=== PATIENT | female | born 1990 | race Caucasian/White ===

== ENCOUNTER 2017-10-22 20:34 | Emergency (ER) | payer SELFPAY, OTHER | END 2017-10-22 22:41 | disposition left against medical advice (07) | LOC: E/R 20:34 | DX: Z53.21 Procedure and treatment not carried out due to patient leaving prior to being seen by health care provider (principal) ==

== ENCOUNTER 2017-11-01 09:03 | Outpatient (CLI) | payer OTHER ==
[2017-11-01 11:22] LABS: ADD UMIC YES; UR ASCORBIC ACID 20 mg/dL (NEGATIVE); UR BILIRUBIN (Dip) NEGATIVE (NEGATIVE); UR BLOOD (Dip) NEGATIVE (NEGATIVE); UR CLARITY SLIGHTLY CLOUDY (CLEAR); UR COLOR YELLOW (YELLOW); UR GLUCOSE (Dip) NEGATIVE (NEGATIVE); UR KETONES (Dip) NEGATIVE (NEGATIVE); UR LEUKOCYTE ESTERASE (Dip) TRACE Leu/ul (NEGATIVE); UR MUCUS FEW /HPF (NONE SEEN); UR NITRITE (Dip) NEGATIVE (NEGATIVE); UR RBC 0 /HPF (0-5); UR SPECIFIC GRAVITY (Dip) 1.019 (1.003-1.030); UR SQUAMOUS EPITHELIAL CELL FEW /HPF (FEW); UR TOTAL PROTEIN (Dip) NEGATIVE (NEGATIVE); UR UROBILINOGEN (Dip) NEGATIVE (NEGATIVE); UR WBC 1 /HPF (0-5)
== END 2017-11-01 11:35 | disposition home or self-care (01) ==
LOC: OBT 09:03 → L-D 09:03 → OBT 11:35
DX: O26.892 Other specified pregnancy related conditions, second trimester (principal); R10.2 Pelvic and perineal pain; Z3A.22 22 weeks gestation of pregnancy
CPT/HCPCS: 81001

== ENCOUNTER 2017-11-04 13:25 | Outpatient (CLI) | payer OTHER | END 2017-11-04 17:55 | disposition home or self-care (01) | LOC: OBT 13:25 → L-D 13:25 → OBT 17:55 | DX: O26.852 Spotting complicating pregnancy, second trimester (principal); Z3A.22 22 weeks gestation of pregnancy | CPT/HCPCS: 76815; 76817 ==

== ENCOUNTER 2017-11-13 21:26 | Outpatient (CLI) | payer OTHER ==
[2017-11-13] MEDS: ONDANSETRON 4 MG TAB PO (22:29)
[2017-11-13 22:34] LABS: ADD MAN DIFF? NO
[2017-11-13 22:35] LABS: BASOPHILS % 0.2 % (0.0-2.0); EOSINOPHILS # 0.1 10^3/ul (0.0-0.5); EOSINOPHILS % 0.6 % (0.0-7.0); HEMATOCRIT 34.1 % (37.0-47.0); HEMOGLOBIN 11.6 g/dl (12.0-16.0); LYMPHOCYTES # 1.5 10^3/ul (0.8-2.9); LYMPHOCYTES % 9.7 % (15.0-51.0); MEAN CORPUSCULAR HEMOGLOBIN 29.4 pg (29.0-33.0); MEAN CORPUSCULAR VOLUME 86.5 fl (82.0-101.0); MEAN PLATELET VOLUME 8.5 fl (7.4-10.4); MONOCYTE # 0.7 10^3/ul (0.3-0.9); MONOCYTES % 4.8 % (0.0-11.0); NEUTROPHIL # 12.5 10^3/ul (1.6-7.5); NEUTROPHILS % 83.6 % (39.0-77.0); PLATELET COUNT 355 10^3/UL (140-415); RED BLOOD COUNT 3.94 10^6/ul (4.20-5.40); RED CELL DISTRIBUTION WIDTH 13.7 % (11.5-14.5)
[2017-11-13 22:46] LABS: ADD UMIC YES; UR AMORPHOUS CRYSTAL FEW /HPF (NONE SEEN); UR ASCORBIC ACID NEGATIVE (NEGATIVE); UR BILIRUBIN (Dip) NEGATIVE (NEGATIVE); UR BLOOD (Dip) NEGATIVE (NEGATIVE); UR CLARITY CLOUDY (CLEAR); UR COLOR YELLOW (YELLOW); UR GLUCOSE (Dip) NEGATIVE (NEGATIVE); UR KETONES (Dip) NEGATIVE (NEGATIVE); UR LEUKOCYTE ESTERASE (Dip) NEGATIVE Leu/ul (NEGATIVE); UR MUCUS FEW /HPF (NONE SEEN); UR NITRITE (Dip) NEGATIVE (NEGATIVE); UR RBC 0 /HPF (0-5); UR SPECIFIC GRAVITY (Dip) 1.019 (1.003-1.030); UR SQUAMOUS EPITHELIAL CELL FEW /HPF (FEW); UR TOTAL PROTEIN (Dip) NEGATIVE (NEGATIVE); UR UROBILINOGEN (Dip) NEGATIVE (NEGATIVE); UR WBC 0 /HPF (0-5)
[2017-11-13] MEDS ORDERED: LACTATED RINGER'S 500 ML IV (23:23)
[2017-11-13] MEDS: LACTATED RINGER'S 1,000 ML IV (23:36)
[2017-11-14 00:30] LABS: ALANINE AMINOTRANSFERASE 20 IU/L (13-69); ALBUMIN 3.5 g/dl (3.3-4.9); ALKALINE PHOSPHATASE 100 IU/L (42-121); ASPARTATE AMINO TRANSFERASE 19 IU/L (15-46); BILIRUBIN,INDIRECT 0.4 mg/dl (0-1.1); BILIRUBIN,TOTAL 0.4 mg/dl (0.2-1.3); TOTAL PROTEIN 6.8 g/dl (6.1-8.1)
[2017-11-14] MEDS: ACETAMINOPHEN 1000MG/100ML IV 100 ML IVPB (02:57)
[2017-11-14] MEDS: LACTATED RINGER'S 1,000 ML IV (03:01)
== END 2017-11-14 04:46 | disposition home or self-care (01) ==
LOC: OBT 21:26 → L-D 21:27
DX: O26.892 Other specified pregnancy related conditions, second trimester (principal); R10.9 Unspecified abdominal pain; R19.7 Diarrhea, unspecified; O21.0 Mild hyperemesis gravidarum; Z3A.23 23 weeks gestation of pregnancy
CPT/HCPCS: 36415; 76815; 76817; 80076; 81001; 85025; 87086; 96360; 96361; 96375

== ENCOUNTER 2019-04-06 12:13 | Inpatient (IN) | payer MEDICAID ==
[2019-04-06] MEDS: LACTATED RINGER'S 1,000 ML IV ×2 (12:50→20:37)
[2019-04-07] MEDS: LACTATED RINGER'S 1,000 ML IV (05:48)
== END 2019-04-07 12:00 | disposition home or self-care (01) | DRG 833 ==
LOC: OBT 12:13 → L-D 04-07 03:19 → OBT 18:10 → L-D 18:10
DX: O41.03X0 Oligohydramnios, third trimester, not applicable or unspecified (principal); Z3A.34 34 weeks gestation of pregnancy
CPT/HCPCS: 36415; 76815; 76816; 96360; 96361

== ENCOUNTER 2019-04-14 12:17 | Outpatient (CLI) | payer OTHER, MEDICAID ==
[2019-04-14 13:24] LABS: RUPTURE FETAL MEMBRANES NEGATIVE (NEGATIVE)
== END 2019-04-14 13:40 | disposition home or self-care (01) ==
LOC: OBT 12:17 → L-D 12:19 → OBT 13:40
DX: O41.03X0 Oligohydramnios, third trimester, not applicable or unspecified (principal); Z3A.35 35 weeks gestation of pregnancy
CPT/HCPCS: 76818; 84112

== ENCOUNTER 2019-04-25 01:38 | Inpatient (IN) | payer OTHER, MEDICAID ==
[2019-04-25] MEDS ORDERED: LACTATED RINGER'S 1,000 ML IV (02:20)
[2019-04-25] MEDS ORDERED: BUTORPHANOL 2 MG INJ IV ×2 (02:30)
[2019-04-25] MEDS ORDERED: MISOPROSTOL 200 MCG TAB PR ×2 (02:30→09:30)
[2019-04-25] MEDS ORDERED: LIDOCAINE 1% (MPF) 30 ML INJ INJ (02:30)
[2019-04-25] MEDS ORDERED: CARBOPROST 250 MCG INJ IM ×2 (02:30→09:30)
[2019-04-25] MEDS ORDERED: OXYTOCIN 30 UNITS/LR 500 ML IV ×2 (02:30→09:30)
[2019-04-25] MEDS ORDERED: METHYLERGONOVINE 0.2 MG INJ IM ×2 (02:30→09:30)
[2019-04-25 02:51] LABS: ADD MAN DIFF? NO
[2019-04-25 02:53] LABS: BASOPHILS % 0.2 % (0.0-2.0); EOSINOPHILS # 0.1 10^3/ul (0.0-0.5); EOSINOPHILS % 0.5 % (0.0-7.0); HEMATOCRIT 35.5 % (37.0-47.0); HEMOGLOBIN 11.5 g/dl (12.0-16.0); LYMPHOCYTES # 2.8 10^3/ul (0.8-2.9); LYMPHOCYTES % 23.1 % (15.0-51.0); MEAN CORPUSCULAR HGB CONC 32.4 g/dl (32.0-37.0); MEAN CORPUSCULAR VOLUME 83.3 fl (82.0-101.0); MEAN PLATELET VOLUME 10.4 fl (7.4-10.4); MONOCYTE # 0.9 10^3/ul (0.3-0.9); NEUTROPHIL # 8.4 10^3/ul (1.6-7.5); NEUTROPHILS % 68.6 % (39.0-77.0); PLATELET COUNT 270 10^3/UL (140-415); RED BLOOD COUNT 4.26 10^6/ul (4.20-5.40); RED CELL DISTRIBUTION WIDTH 13.1 % (11.5-14.5)
[2019-04-25 02:53] LABS: WHITE BLOOD COUNT 12.2 10^3/ul (4.8-10.8)
[2019-04-25] MEDS ORDERED: MINERAL OIL LIGHT 10 ML VIAL TOP (03:00)
[2019-04-25] MEDS: LACTATED RINGER'S 1,000 ML IV ×2 (03:00→03:32)
[2019-04-25] MEDS: AMPICILLIN 2 GM/NS (PMX) 100 ML IV (03:00)
[2019-04-25 03:12] LABS: INR 0.89; PROTIME 12.1 Sec (11.9-14.9); PT RATIO 0.9
[2019-04-25 03:13] LABS: PARTIAL THROMBOPLASTIN TIME 28.8 Sec (23.0-35.0)
[2019-04-25] MEDS ORDERED: FENTAnyl 2MCG/ML-ROPIV 0.2% 100 ML (03:27)
[2019-04-25] MEDS ORDERED: DIPHENHYDRAMINE 50 MG INJ IV (03:30)
[2019-04-25] MEDS ORDERED: NALOXONE (0.4 MG/ML) INJ IV (03:30)
[2019-04-25] MEDS ORDERED: ONDANSETRON 4 MG INJ IV ×2 (03:30→09:30)
[2019-04-25 03:51] LABS: HEPATITIS B SURFACE ANTIGEN NEGATIVE (NEGATIVE)
[2019-04-25 04:01] LABS: HIV 1&2 ANTIBODY NEGATIVE (NEGATIVE)
[2019-04-25] MEDS: CEFAZOLIN 2 GM/50 ML (PMX) 50 ML IVPB (08:45)
[2019-04-25] MEDS: OXYTOCIN 30 UNITS/LR 500 ML IV ×3 (08:47→09:25)
[2019-04-25] MEDS: FENTAnyl 2MCG/ML-ROPIV 0.2% 100 ML BAG EPI (08:49)
[2019-04-25] MEDS: AMPICILLIN 1 GM/NS (PMX) 50 ML IV ×2 (08:49→10:30)
[2019-04-25] MEDS: LACTATED RINGER'S 1,000 ML IV* (09:12)
[2019-04-25] MEDS ORDERED: ACETAMINOPHEN 325 MG TAB PO (09:30)
[2019-04-25] MEDS ORDERED: MAGNESIUM HYDROXIDE 30ML CUP PO (09:30)
[2019-04-25] MEDS ORDERED: DIBUCAINE 1% 30 GM OINT TOP (09:30)
[2019-04-25] MEDS ORDERED: IBUPROFEN 600 MG TAB PO (09:30)
[2019-04-25] MEDS ORDERED: SENNA/DOCUSATE NA (8.6MG/50MG) TAB PO (09:30)
[2019-04-25] MEDS: IBUPROFEN 600 MG TAB PO ×2 (11:26→17:21)
[2019-04-25] MEDS: LANOLIN HPA 1 PKT TOP (13:46)
[2019-04-25] MEDS: BENZOCAINE 20% 56 ML SPRAY TOP (13:46)
[2019-04-25] MEDS: WITCH HAZEL/GLYCERIN PAD PR (13:47)
[2019-04-25 13:52] LABS: RAPID PLASMA REAGIN NONREACTIVE (NR)
[2019-04-25] MEDS: SENNA/DOCUSATE NA (8.6MG/50MG) TAB PO (21:46)
[2019-04-26] MEDS: IBUPROFEN 600 MG TAB PO ×4 (00:12→17:10)
[2019-04-26] MEDS: ACETAMINOPHEN 325 MG TAB PO (02:09)
[2019-04-26 06:35] LABS: ADD MAN DIFF? NO
[2019-04-26 06:43] LABS: WHITE BLOOD COUNT 10.9 10^3/ul (4.8-10.8)
[2019-04-26 06:43] LABS: BASOPHILS % 0.2 % (0.0-2.0); EOSINOPHILS # 0.1 10^3/ul (0.0-0.5); EOSINOPHILS % 0.8 % (0.0-7.0); HEMATOCRIT 28.3 % (37.0-47.0); HEMOGLOBIN 8.9 g/dl (12.0-16.0); LYMPHOCYTES # 3.7 10^3/ul (0.8-2.9); LYMPHOCYTES % 33.5 % (15.0-51.0); MEAN CORPUSCULAR HEMOGLOBIN 26.9 pg (29.0-33.0); MEAN CORPUSCULAR HGB CONC 31.4 g/dl (32.0-37.0); MEAN CORPUSCULAR VOLUME 85.5 fl (82.0-101.0); MEAN PLATELET VOLUME 10.6 fl (7.4-10.4); MONOCYTE # 0.6 10^3/ul (0.3-0.9); MONOCYTES % 5.7 % (0.0-11.0); NEUTROPHIL # 6.4 10^3/ul (1.6-7.5); NEUTROPHILS % 59.1 % (39.0-77.0); PLATELET COUNT 216 10^3/UL (140-415); RED BLOOD COUNT 3.31 10^6/ul (4.20-5.40); RED CELL DISTRIBUTION WIDTH 13.4 % (11.5-14.5)
[2019-04-26] MEDS: SENNA/DOCUSATE NA (8.6MG/50MG) TAB PO ×2 (08:05→21:00)
[2019-04-27] MEDS: IBUPROFEN 600 MG TAB PO ×3 (00:17→12:07)
[2019-04-27] MEDS: SENNA/DOCUSATE NA (8.6MG/50MG) TAB PO (09:00)
== END 2019-04-27 15:15 | disposition home or self-care (01) | DRG 807 ==
LOC: OBT 01:38 → L-D 01:39 → OBT 02:06 → L-D 02:06 → PP1 11:54
PROVIDERS: Obstetrics & Gynecology Gynecology
PROC: 10E0XZZ Delivery of Products of Conception, External Approach (ICD-10-PCS; principal; 2019-04-25)
DX: O80 Encounter for full-term uncomplicated delivery (principal); Z37.0 Single live birth; Z3A.37 37 weeks gestation of pregnancy
CPT/HCPCS: 62322; 76815; 76818; 85025; 85610; 85730; 86592; 86703; 86850; 86900; 86901; 87340; 99464

== ENCOUNTER 2019-05-06 09:39 | Emergency (ER) | payer OTHER | END 2019-05-06 11:52 | disposition home or self-care (01) | LOC: E/R 09:39 | DX: R10.9 Unspecified abdominal pain (principal); R11.2 Nausea with vomiting, unspecified | CPT/HCPCS: 99283; Z7502 ==

== ENCOUNTER 2019-07-04 04:56 | Emergency (ER) | payer OTHER ==
[2019-07-04] MEDS: ONDANSETRON 4 MG INJ IV (07:17)
[2019-07-04] MEDS: FAMOTIDINE 20 MG TAB PO (07:17)
[2019-07-04] MEDS: KETOROLAC 30 MG INJ IV (07:17)
[2019-07-04] MEDS: BELLADONNA/PHENOBARBITAL TAB PO (07:18)
== END 2019-07-04 07:52 | disposition home or self-care (01) ==
LOC: FTE 04:56
DX: R10.13 Epigastric pain (principal)
CPT/HCPCS: 36415; 76705; 80053; 81001; 81025; 83690; 85025; 96374; 96375; 99285-25